=== PATIENT | female | born 2000 | race Caucasian/White ===

== ENCOUNTER 2023-11-28 00:50 | Emergency (ER) | payer OTHER ==
[~2023-11-28] VITALS: Ht 177.8 cm; Wt 111.1 kg
[2023-11-28 01:00] VITALS: BP 110/71; PULSE 84; RESP 16; TEMP 97.7; O2SAT 99
[2023-11-28] MEDS ORDERED: ACETAMINOPHEN 325 MG TAB ONE (01:54)
[2023-11-28 01:56] VITALS: BP 110/71; PULSE 84; RESP 16; TEMP 97.7; O2SAT 99
[2023-11-28] MEDS: ACETAMINOPHEN 325 MG TAB PO ONE (01:56)
== END 2023-11-28 01:56 | disposition home or self-care (01) ==
LOC: MED 00:50
DX: S09.90XA Unspecified injury of head, initial encounter (principal); Z98.890 Other specified postprocedural states; W18.39XA Other fall on same level, initial encounter; Y93.89 Activity, other specified; Y92.89 Other specified places as the place of occurrence of the external cause; Y99.0 Civilian activity done for income or pay
CPT/HCPCS: 99282